=== PATIENT | female | born 1930 | race Two or more races ===

== ENCOUNTER 2016-10-22 12:10 | Emergency (ER) | payer MEDICARE, MEDICAID ==
[~2016-10-22] VITALS: Ht 147.3 cm; Wt 49.9 kg
[2016-10-22 15:39] VITALS: BP 112/76
[2016-10-22] MEDS ORDERED: KETOROLAC TROMETH 30 MG/ML 1ML VIAL IM ONE (16:00)
== END 2016-10-22 17:38 | disposition home or self-care (01) ==
LOC: ER 12:10
DX: S52.502A Unspecified fracture of the lower end of left radius, initial encounter for closed fracture (principal); S52.612A Displaced fracture of left ulna styloid process, initial encounter for closed fracture; S52.132A Displaced fracture of neck of left radius, initial encounter for closed fracture; S00.83XA Contusion of other part of head, initial encounter; K21.9 Gastro-esophageal reflux disease without esophagitis; F03.90 Unspecified dementia, unspecified severity, without behavioral disturbance, psychotic disturbance, mood disturbance, and anxiety; W18.39XA Other fall on same level, initial encounter; Y93.89 Activity, other specified; Y92.89 Other specified places as the place of occurrence of the external cause; Y99.8 Other external cause status
CPT/HCPCS: 29105; 70450; 73030; 73070; 73110; 96372; 99284; J1885